=== PATIENT | female | born 1965 | race Caucasian/White ===

== ENCOUNTER → 2016-10-29 | Outpatient (CLI) | payer BC ==
--- NOTE | 2016-10-30 12:48 | MAMMOGRAPHY REPORT ---
BILATERAL DIGITAL SCREENING MAMMOGRAM TOMOSYNTHESIS WITH CAD: 10/29/2016 CLINICAL HISTORY: Routine screening. Patient has no complaints. TECHNIQUE: Breast tomosynthesis in addition to standard 2D mammography was performed. Current study was also evaluated with a Computer Aided Detection (CAD) system. COMPARISON: Comparison is made to exams dated: 10/25/2015 mammogram, 10/21/2014 mammogram, 10/19/2013 m ammogram, 10/13/2012 mammogram, 04/18/2012 mammogram, and 10/17/2011 ultrasound biopsy - [facility]. BREAST COMPOSITION: There are scattered areas of fibroglandular density in both breasts. FINDINGS: There is a stable partially circumscribed mass with associated metallic biopsy marker in t he lower inner quadrant of the left breast. Stable asymmetry in the 12:00 posterior right breast. No new suspicious mass, architectural distortion or cluster of microcalcifications is seen. IMPRESSION: ACR BI-RADS CATEGORY 1: NEGATIVE There is no mammographic evidence of malignancy. A 1 year screening mammogram is recommended. The p atient will receive written notification of the results. Approximately 10% of breast cancers are not detected with mammography. A negative mammographic repor t should not delay biopsy if a clinically suggestive mass is present. Sunshine Jasso M.D. ay/:10/29/2016 21:54:47 Core Cutter: Dolores Torres M, [facility] letter sent: Normal 1/2 BI-RADS Code: ACR BI-RADS Category 1: Negative
== END | disposition home or self-care (01) ==
LOC: C.MAMM 07:58
PROVIDERS: ATTEND Obstetrics & Gynecology
DX: Z12.31 Encounter for screening mammogram for malignant neoplasm of breast (principal)

== ENCOUNTER → 2017-10-31 | Outpatient (CLI) | payer OTHER ==
--- NOTE | 2017-11-01 07:48 | MAMMOGRAPHY REPORT ---
BILATERAL DIGITAL SCREENING MAMMOGRAM TOMOSYNTHESIS WITH CAD: 10/31/2017 CLINICAL HISTORY: Routine screening. TECHNIQUE: Breast tomosynthesis in addition to standard 2D mammography was performed. Current study was also evaluated with a Computer Aided Detection (CAD) system. COMPARISON: Comparison is made to exams dated: 10/29/2016 mammogram, 10/25/2015 mammogram, 10/21/2014 leandra mogram, 10/19/2013 mammogram, 10/13/2012 mammogram, and 10/09/2011 mammogram - [facility]. BREAST COMPOSITION: There are scattered areas of fibroglandular density in both breasts. FINDINGS: No suspicious masses, calcifications, or areas of architectural distortion are noted in ei ther breast. There has been no significant interval change compared to prior exams. A biopsy clip is again noted within the left medial breast. Asymmetry within the right superior posterior breast on the MLO view is stable to less prominent compared to the 2009 exam and is therefore considered benign . IMPRESSION: ACR BI-RADS CATEGORY 2: BENIGN There is no mammographic evidence of malignancy. A 1 year screening mammogram is recommended. The pa tient will receive written notification of the results. Approximately 10% of breast cancers are not detected with mammography. A negative mammographic report should not delay biopsy if a clinically suggestive mass is present. Shani Simpson M.D. /:10/31/2017 14:46:34 Deputy Of Counter Intelligence: Aron DHALIWAL)(Albert), [facility] letter sent: Normal 1/2 BI-RADS Code: ACR BI-RADS Category 2: Benign
== END | disposition home or self-care (01) ==
LOC: C.MAMM 08:10
PROVIDERS: ATTEND Obstetrics & Gynecology
DX: Z12.31 Encounter for screening mammogram for malignant neoplasm of breast (principal)

== ENCOUNTER → 2017-11-08 | Outpatient (CLI) | payer OTHER ==
--- NOTE | 2017-11-08 13:40 | DIAGNOSTIC IMAGING REPORT ---
L HIP UNILATERAL 2 VIEWS CLINICAL HISTORY: 52 years-old Female presenting with L HIP PAIN. TECHNIQUE: Frontal and frog-leg lateral views of the left hip were obtained. COMPARISON: None. FINDINGS: Left hip joint congruent. Severe joint space loss affecting the medial aspect of the joint of the greatest degree but also along the superior aspect. Osteophytosis, subchondral sclerosis, and cystic change affects both the femoral head and acetabulum. No acute fracture or malalignment. No radiographic soft tissue abnormality. IMPRESSION: 1. Advanced degenerative changes of the left hip joint. 2. No acute osseous injury. Electronically signed by: Jj Nieto M.D. 11/08/2017 1:38 PM Dictated Date/Time: 11/08/2017 1:37 PM
== END | disposition home or self-care (01) ==
LOC: C.RAD 13:14
PROVIDERS: ATTEND Internal Medicine
DX: M25.552 Pain in left hip (principal)

== ENCOUNTER 2019-05-15 05:23 | Inpatient (IN) ==
--- NOTE | 2019-04-10 15:47 | PAT Medication Instructions ---
Medication Instructions Date of Service April 10, 2019 Home Medications cetirizine [All Day Allergy (cetirizine)] 10 mg PO DAILY acetaminophen [Acetaminophen Extra Strength] 1,000 mg PO UD PRN diclofenac sodium 75 mg PO BID ASK your surgeon for instructions diclofenac sodium 75 mg PO BID DO NOT take the morning of surgery cetirizine [All Day Allergy (cetirizine)] 10 mg PO DAILY Take morning of surgery With a small sip of water, OTHERWISE NOTHING TO EAT OR DRINK AFTER MIDNIGHT: acetaminophen [Acetaminophen Extra Strength] 1,000 mg PO UD PRN (okay to take up to 4 hours prior to surgery if needed) Other Notes If you have any questions please call us at [phone] or [phone] or [phone] or [phone]
--- NOTE | 2019-04-13 09:41 | Anesthesiology Consultation ---
Date of Service April 13, 2019 Assessment & Plan (1) Encounter for pre-operative examination: - S/P Left PRINCE: 05/19/18: SAB x 1 at L3-L4 at [facility]//Left PRINCE revision: 06/24/18: Grade view 1, Yoder #2, ETT 7.5 at [facility] Chart Review Chart Review: Pending: Refer to Additional Notes / Consult section (pending preop testing (labs, EKG, CXR)) and Patient seen in Pre Admission Testing Teaching & Discussion Pre-Anesthesia Teaching/Discussion Notes: Instructed NPO after midnight before surgery,except medications with 15 cc of water. Medication instructions provided according to the PAT guidelines. History Surgery Operation Date: 05/15/19 07:00 Proposed Procedures p Right Anterior Total Hip Arthroplasty - Monty Cruz DO Height/Weight Height: 5 ft 7 in Weight: 76.7 kg Allergies Allergy/AdvReac Type Severity Reaction Status Date / Time No Known Allergies Allergy Unknown Verified 04/01/19 09:05 Medications Home Medications Medication Instructions Recorded Confirmed Last Taken cetirizine [All Day Allergy 10 mg PO DAILY 06/23/18 04/01/19 06/22/18 (cetirizine)] acetaminophen [Acetaminophen Extra 1,000 mg PO UD PRN 04/01/19 04/01/19 Unknown Strength] diclofenac sodium 75 mg PO BID 04/01/19 04/01/19 Unknown Past Medical History Medical History History of blood transfusion possible post-op Psoriasis Psoriatic arthritis Exercise / Class Metabolic Activity II 4-5 Yardwork/Stairs/Walk up hill Past Family History Family History Sister Family history of reaction to anesthesia Father Family history of diabetes mellitus Grandfather Family hx of colon cancer Past Surgical History Surgical History History of colonoscopy History of hip surgery Left PRINCE revision: 06/24/18: Grade view 1, Yoder #2, ETT 7.5 at [facility] History of hysterectomy PARTIAL History of oophorectomy History of tonsillectomy Hx of ovarian cystectomy X 4 Status post left hip replacement Left PRINCE: 05/19/18: SAB x 1 at L3-L4 at [facility] Past Anesthesia History No Hx of Anesthesia Complications Sister- slow to wake" History of PONV No Hx of PONV and No Hx of Motion Sickness Social History Smoking Status: Current every day smoker tobacco type: e-cigarettes Do You Dip or Chew Tobacco: No Smoking End Date: QUIT CIGARETTES, 4 YRS AGO - DOES VAPE DAILY/ADVISED NPO Hx Alcohol Use: Yes Alcohol type: beer alcohol intake frequency: a few times a week (average case/week) Hx Substance Use: No substance use type: does not use Review of Systems Patient denies chest pain, shortness of breath, dyspnea on exertion, reflux, cough, wheezing, palpitations. Physical Exam Vital Signs VITALS BP 127/84 P 94 TEMP 98.3 SP02 97%RA RESP 16 PHYSICAL Full neck and c-spine range of motion. Full TMJ range of motion. TMD 3.5 finger breaths Mallampati Score 3 Dentition: upper left side tooth missing, crowns "all over" Lungs: clear throughout to auscultation Cardiac: regular rate and rhythm, I/ systolic murmur Spine: normal Carotid arteries: negative bruit Extremities: no edema
[2019-04-13 10:53] LABS: Basophils # (auto) 0.03 K/uL (0-0.2); Basophils % (auto) 0.8 %; Eosinophils # (auto) 0.13 K/uL (0-0.5); Eosinophils % (auto) 3.3 %; Hematocrit (blood only) 40.6 % (37-47); Hemoglobin 13.7 g/dL (12.0-16.0); Immature Granulocytes # (auto) 0.01 K/uL (0.00-0.02); Immature Granulocytes % (auto) 0.3 %; Lymphocytes # (auto) 1.06 K/uL (1.2-3.4); Lymphocytes % (auto) 26.5 %; Mean Corpuscular Hgb Conc 33.7 g/dL (32-36); Mean Corpuscular Volume 94.9 fL (80-100); Mean Platelet Volume 9.5 fL (7.4-10.4); Monocytes # (auto) 0.38 K/uL (0.11-0.59); Monocytes % (auto) 9.5 %; Neutrophils # (auto) 2.39 K/uL (1.4-6.5); Neutrophils % (auto) 59.6 %; Platelet Count 329 K/uL (130-400); RDW Coefficient of Variation 13.7 % (11.5-14.5); RDW Standard Deviation 47.4 fL (36.4-46.3); Red Blood Count 4.28 M/uL (4.2-5.4)
--- NOTE | 2019-04-13 11:01 | XRay Report ---
XR chest Pre-admission PA/Lat CLINICAL HISTORY: 53 years-old Female presenting with preoperative evaluation. TECHNIQUE: PA and lateral views of the chest were obtained. COMPARISON: 04/29/2018. FINDINGS: Atherosclerosis of the aortic arch. Cardiac silhouette normal in size. Lungs are mildly hyperinflated . No focal opacity. No pleural effusion or pneumothorax. Osseous structures normal. Upper abdomen nor mal. IMPRESSION: 1. Mild hyperinflation could be due to inspiratory effort or developing chronic obstructive lung dis ease. No other evidence of acute cardiopulmonary disease. Electronically signed by: Jj Nieto M.D. 04/13/2019 10:59 AM
[2019-04-13 11:12] LABS: BUN Creatinine Ratio 10.8 (10-20); Calcium 8.9 mg/dl (8.5-10.1); Est GFR (African American) 114.9; Est GFR (Non-African American) 99.2; Partial Thromboplastin Ratio 1.1; Partial Thromboplastin Time 28.5 Seconds (21.0-31.0); Potassium 4.8 mmol/L (3.5-5.1)
[2019-04-13 12:31] LABS: Appearance Urine Clear (Clear); Bilirubin Urine Negative (Negative); Blood Urine Negative (Negative); Color Urine Yellow; Glucose Urine UA Negative (Negative); Ketones Urine Negative (Negative); Leukocyte Esterase Urine Negative (Negative); Nitrite Urine Negative (Negative); Protein Urine Negative (Negative); Specific Gravity Urine 1.009 (1.000-1.030); Urobilinogen Urine Negative (Negative)
--- NOTE | 2019-05-14 14:44 | History & Physical Report ---
Date of Service May 14, 2019 Assessment & Plan (1) Osteoarthritis of right hip: We will proceed with a right anterior total hip arthroplasty. Postoperatively she will be started on on aspirin for DVT prophylaxis and kept overnight in the hospital for postoperative medical management. She plans to use energy physical therapy upon discharge. Present on Admission?: Yes History of Present Illness Chief Complaint: Primary osteoarthritis of the right hip Primary Care Provider: Asher Hickman MD Yu is a pleasant 53-year-old female who underwent a left total hip arthroplasty last year. She did well until she fell hard on her left hip. She had a left periprosthetic femur fracture. She underwent a revision total hip arthroplasty for that. She did well. Unfortunately she is now having right hip pain. X-rays and clinical examination have been diagnostic for primary osteoarthritis of the right hip. After failing conservative treatment, she has elected to proceed with a right total hip arthroplasty. Allergies Allergy/AdvReac Type Severity Reaction Status Date / Time No Known Allergies Allergy Unknown Verified 04/01/19 09:05 Home Medications Home Medications Medication Instructions Recorded Confirmed Type cetirizine [All Day Allergy 10 mg PO DAILY 06/23/18 04/01/19 History (cetirizine)] acetaminophen [Acetaminophen Extra 1,000 mg PO UD PRN 04/01/19 04/01/19 History Strength] diclofenac sodium 75 mg PO BID 04/01/19 04/01/19 History Past Med/Surg History Medical History History of blood transfusion possible post-op Psoriasis Psoriatic arthritis Surgical History History of colonoscopy History of hip surgery Left PRINCE revision: 06/24/18: Grade view 1, Yoder #2, ETT 7.5 at [facility] History of hysterectomy PARTIAL History of oophorectomy History of tonsillectomy Hx of ovarian cystectomy X 4 Status post left hip replacement Left PRINCE: 05/19/18: SAB x 1 at L3-L4 at [facility] Family History Sister Family history of reaction to anesthesia Father Family history of diabetes mellitus Grandfather Family hx of colon cancer Social History (Updated 06/23/18 @ 00:30 by Zakiya Saenz) Preferred Language: Belgian Communication Ability: Effective Visual Impairment: Partially Limited Spinning Frame Tender Required: No Beliefs That Will Affect Care: None marital status: Current Living Situation: Alone Current Living Situation Comment: DAUGHTER current occupational status: employed Other Information That Helps Us Care for You: No Feels Safe at Home: Yes Smoking Status: Current every day smoker Tobacco Type: e-cigarettes ; Do You Dip or Chew Tobacco: No ; Smoking End Date: QUIT CIGARETTES, 4 YRS AGO - DOES VAPE DAILY/ADVISED NPO ; Second Hand Exposure: Yes (ON OCC) ; Hx Alcohol Use: Yes Alcohol type: beer Hx Substance Use: No Review of Systems All systems reviewed & are unremarkable except as noted in HPI & below Physical Exam Constitutional: WD/WN, vitals as above Eyes: PERRL, conjunctivae normal, anicteric sclerae ENMT: external ear and nose normal, oropharynx normal Neck: trachea midline, no thyromegaly Respiratory: normal respiratory effort Cardiovascular: RRR, no murmur, no edema Gastrointestinal (Abdomen): normal bowel sounds, soft, nontender, no hepatosplenomegaly Musculoskeletal: Physical examination of the right hip reveals decreased range of motion with flexion, internal and external rotation. There is significant groin pain with forced internal rotation of the hip his leg lengths are essentially equal. Psychiatric: A+Ox3, euthymic affect Results & Data Diagnostic Findings Radiographs of the right hip and pelvis demonstrate advanced osteoarthritis with joint space narrowing osteophyte formation and uvpe-[id number] articulation.
[2019-05-15] MEDS ORDERED: GABAPENTIN 900 MG DOSE PO SCH (06:00)
[2019-05-15] MEDS ORDERED: ACETAMINOPHEN 500 MG TAB PO SCH (06:00)
[2019-05-15] MEDS ORDERED: TRANEXAMIC ACID 1,000 MG **IV Pre-op IV SCH (06:00)
[2019-05-15] MEDS ORDERED: FAMOTIDINE 20 MG TAB PO SCH (06:00)
[2019-05-15] MEDS ORDERED: LR 15ML/HR IV SCH (06:00)
[2019-05-15] MEDS ORDERED: LR 60ML/HR IV SCH (06:00)
[2019-05-15] MEDS ORDERED: ROPIVACAINE 0.5% HCL/PF 150 MG, BUPIVACAINE 0.5% MPF 30 ML, EPINEPHrine 30MG/30ML (OR U... INSTIL SCH (06:00)
[2019-05-15] MEDS ORDERED: BUPIVACAINE 0.5 % 5 MG/1 ML PF 10ML VIAL ONE (06:14)
[2019-05-15] MEDS ORDERED: TRANEXAMIC ACID 1,000 MG **IV Intra-op IV SCH (06:30)
[2019-05-15] MEDS ORDERED: fentaNYL citrate 100 MCG/2 ML VIAL IV PRN (06:31)
[2019-05-15] MEDS ORDERED: ONDANSETRON INJ 2 MG/ML 2 ML VIAL IV PRN ×2 (06:31→10:06)
[2019-05-15] MEDS ORDERED: ePHEDrine sulfate 50 MG/ML AMP IV PRN (06:31)
[2019-05-15] MEDS ORDERED: ATROPINE SULFATE 0.1 MG/ML 10ML SYR IV PRN (06:31)
[2019-05-15] MEDS ORDERED: ORTHO JOINT ANESTHETIC ONE (06:32)
[2019-05-15] MEDS ORDERED: MIDAZOLAM HCL 1 MG/ML 2ML VIAL ONE ×2 (06:40→07:38)
[2019-05-15] MEDS ORDERED: fentaNYL citrate 100 MCG/2 ML VIAL ONE ×2 (06:40→07:19)
--- NOTE | 2019-05-15 06:42 | History & Physical Bridge Note ---
Date of Service May 15, 2019 History & Physical Bridge Note I have examined the patient, reviewed the History & Physical and in the interval since the performance of the History & Physical I have noted the following changes of clinical significance: no changes noted
[2019-05-15] MEDS: CEFAZOLIN 1000MG 1,000 MG/7.5 ML SYR IV SCH ×2 (06:51→10:11)
[2019-05-15] MEDS ORDERED: LIDOCAINE HCL 2% 2 ML VIAL/AMP(20MG/ML) INFIL ONE (07:12)
[2019-05-15] MEDS ORDERED: PHENYLEPHRINE 100MCG/ML 5ML SYR ONE (07:12)
[2019-05-15] MEDS ORDERED: PROPOFOL IV EMULSION 10 MG/ML 20 ML VIAL IV ONE (07:12)
[2019-05-15] MEDS ORDERED: ONDANSETRON INJ 2 MG/ML 2 ML VIAL ONE (07:12)
--- NOTE | 2019-05-15 08:13 | Operative Report ---
PG Post Operative Report Pre & Post Diagnosis Operation Date: 05/15/19 07:00 Pre-Op Diagnosis: Right Hip Degenerative Joint Disease Post-Op Diagnosis: Right Hip Degenerative Joint Disease I identified the patient and participated in the time-out.: Yes Procedure Operation Date: 05/15/19 07:00 Actual Procedures p Right Anterior Total Hip Arthroplasty(Right) - Monty Cruz DO Surgeon Monty Cruz DO Occup Ther Monty Cast PAC Estimated Blood Loss 250 Findings Consistent with Post-Op Diagnosis Specimens Right femoral head Complications none Disposition Disposition: Recovery Room Indications Lakshmi is a pleasant 53-year-old female who presented my office with chronic increasing right hip and groin pain. X-rays and clinical examination have been diagnostic for primary osteoarthritis of the right hip. After failing conservative treatment, she elected to proceed with a right anterior total hip arthroplasty. Description of Procedure Implants used Biomet Taperloc total hip arthroplasty system with a size 11 high offset Taperloc stem, a 52 mm G7 cup with a 25mm screw, an E1 polyethylene liner, a 36 mm ceramic head with a +0 neck. Patient arrived at the hospital for the above procedure. They were seen in the preoperative holding area and the operative extremity was identified and signed. They were given a spinal anesthetic. They were given a preoperative antibiotic and TXA. They were taken back To the operating room and laid on the table in the supine position. The leg was brought out through a Puristst leg positioner. The hip was then prepped and draped in sterile fashion. A timeout was done and the patient and the operative extremity was properly identified. An anterior approach was used. Dissection was taken down through the fascia and the tensor muscle belly was retracted laterally and the rectus was retracted medially. The circumflex vessels were identified and ligated. The capsule was then incised and tagged for later repair. The femoral neck was then cut and the femoral head was removed. The acetabulum was exposed. Time was spent doing a complete circumferential labral release. Sequential reaming of the acetabulum up to a size 51 reamer was done. Final reamings were done under fluoroscopy to ensure appropriate version. A Biomet 52 mm G7 cup was then impacted into place. A single 25 mm screw was placed. The E1 polyethylene liner was then snapped into place. Surrounding soft tissues were then injected with 100 cc of an orthopedic pain control cocktail. The proximal femur was then exposed. Sequential broaching up to a size 11 broach was done. Off that broach a size 36 head with a +0 neck was trialed. The hip was reduced and fluoroscopic images showed anatomic alignment of the implants in acceptable length. The broach was removed. The final size 11 high offset Taperloc stem was then impacted into place. A ceramic 36 mm head with a +0 neck was then impacted into place in the hip was reduced. Final fluoroscopic images showed anatomic reduction of the hip. The capsule was then closed with #1 Vicryl suture. A dilute betadyne lavage was then done for 3 minutes. The joint was then irrigated with normal saline solution. The fascia was closed with #1 PDS suture. Skin was closed with 2-0 Vicryl, jen, and a Jyotsna VAC dressing. The patient was then transferred to a hospital bed and taken to the post anesthesia care unit in stable condition. They tolerated the procedure well. I attest to the content of the Intraoperative Record and any orders documented therein. Any exceptions are noted below.
--- NOTE | 2019-05-15 08:50 | Fluoroscopy Report ---
FL hip RT 1V CLINICAL HISTORY: RT ANTERIOR HIP COMPARISON STUDY: Pelvis 04/13/2019. FLUOROSCOPY TIME: 37 seconds.. FINDINGS: A single fluoroscopic spot image of the right hip demonstrates a right total hip arthroplas ty. The hardware is intact. No fracture or dislocation. IMPRESSION: Fluoroscopy provided for right total hip arthroplasty. Electronically signed by: Jorge Nielsen M.D. 05/15/2019 8:49 AM
--- NOTE | 2019-05-15 09:05 | XRay Report ---
XR hip 1V RT w pelvis CLINICAL HISTORY: IN PACU - A/P PELVIS and LATERAL HIP COMPARISON: 06/23/2018 DISCUSSION: Total right hip arthroplasty in good position. Could contact between prosthetic and under lying bone. Expected postoperative soft tissue change. Pre-existing total left hip arthroplasty. IMPRESSION: Anatomic alignment posttotal right hip arthroplasty. The above report was generated using voice recognition software. It may contain grammatical, syntax or spelling errors. Electronically signed by: Param Urbina M.D. 05/15/2019 9:04 AM
--- NOTE | 2019-05-15 09:34 | Anesthesiology Progress Note ---
Date of Service May 15, 2019 Anesthesia Post Procedure Vital Signs Vital Signs: Temp Pulse Pulse Resp BP BP Pulse Ox 05/15/19 09:30 98.4 F 72 13 93/63 L 92 05/15/19 09:20 72 14 95/66 L 92 05/15/19 09:10 62 16 97/63 L 93 05/15/19 09:00 68 18 100/69 97 05/15/19 08:50 77 17 92/66 L 94 05/15/19 08:40 98.4 F 78 16 106/71 95 05/15/19 05:57 98.1 F 71 20 155/92 H 95 Pain Intensity Right Hip: Pain Intensity: 2 Transfer of Care Handoff Completed per policy Notes Mental Status: alert / awake / arousable and participated in evaluation Patient Amnestic to Procedure: Yes Nausea / Vomiting: adequately controlled Pain: adequately controlled Airway Patency, RR, SpO2: stable & adequate BP & HR: stable & adequate Hydration State: stable & adequate Neuraxial Anesthesia: was administered and sensory block is resolving Anesthetic Complications: no major complications apparent and Pt Satisfied with anesthetic care
[2019-05-15] MEDS ORDERED: SODIUM CHLORIDE 0.9% 1000ML 1,000 ML IV SCH (10:06)
[2019-05-15] MEDS ORDERED: METOCLOPRAMIDE HCL INJ 5 MG/ML 2 ML VIAL IV PRN (10:06)
[2019-05-15] MEDS ORDERED: TRAMADOL HCL 50 MG TABLET PO PRN (10:06)
[2019-05-15] MEDS ORDERED: BISACODYL 10 MG SUPP PR PRN (10:06)
[2019-05-15] MEDS ORDERED: HYDROmorphone INJ 0.5 MG/0.5 ML SYR IV PRN (10:06)
[2019-05-15] MEDS ORDERED: MAGNESIUM HYDROXIDE SUSP 30 ML UDC PO PRN (10:06)
[2019-05-15] MEDS ORDERED: NALOXONE HCL 0.4 MG/1 ML VIAL/CARP IV PRN (10:06)
[2019-05-15] MEDS: CETIRIZINE HCL 10 MG TABLET PO SCH (12:12)
[2019-05-15] MEDS: MULTIVITAMIN TAB PO SCH (12:12)
[2019-05-15] MEDS: ASPIRIN 81 MG ECTAB PO SCH ×2 (12:12→21:07)
[2019-05-15] MEDS: KETOROLAC 30 MG/ML VIAL IV SCH ×3 (12:13→22:46)
[2019-05-15] MEDS: DOCUSATE SODIUM 100 MG CAP PO SCH ×2 (12:15→21:07)
[2019-05-15] MEDS ORDERED: INFLUENZA ADMINISTRATION CHARGE ONE (12:45)
[2019-05-15] MEDS ORDERED: INFLUENZA VIRUS QUAD VACCINE 0.5 ML SYR IM ONE (12:45)
[2019-05-15] MEDS: ACETAMINOPHEN 500 MG TAB PO SCH ×2 (14:00→21:07)
[2019-05-15] MEDS: CEFAZOLIN 2000MG 2,000 MG/15 ML SYR IV SCH (18:39)
[2019-05-15] MEDS ORDERED: SENNA 8.6 MG TAB PO SCH (21:00)
[2019-05-16] MEDS: CEFAZOLIN 2000MG 2,000 MG/15 ML SYR IV SCH (01:43)
[2019-05-16] MEDS: ACETAMINOPHEN 500 MG TAB PO SCH (05:27)
[2019-05-16] MEDS: KETOROLAC 30 MG/ML VIAL IV SCH (05:28)
[2019-05-16 05:54] LABS: Basophils # (auto) 0.02 K/uL (0-0.2); Basophils % (auto) 0.3 %; Eosinophils # (auto) 0.05 K/uL (0-0.5); Eosinophils % (auto) 0.7 %; Hematocrit (blood only) 30.9 % (37-47); Hemoglobin 10.5 g/dL (12.0-16.0); Immature Granulocytes # (auto) 0.01 K/uL (0.00-0.02); Immature Granulocytes % (auto) 0.1 %; Lymphocytes # (auto) 1.25 K/uL (1.2-3.4); Lymphocytes % (auto) 18.7 %; Mean Corpuscular Hemoglobin 32.2 pg (25-34); Mean Corpuscular Volume 94.8 fL (80-100); Mean Platelet Volume 8.9 fL (7.4-10.4); Monocytes # (auto) 0.63 K/uL (0.11-0.59); Monocytes % (auto) 9.4 %; Neutrophils # (auto) 4.71 K/uL (1.4-6.5); Neutrophils % (auto) 70.8 %; Platelet Count 256 K/uL (130-400); RDW Coefficient of Variation 13.6 % (11.5-14.5); RDW Standard Deviation 46.9 fL (36.4-46.3); Red Blood Count 3.26 M/uL (4.2-5.4); White Blood Count 6.67 K/uL (4.8-10.8)
[2019-05-16 06:20] LABS: BUN Creatinine Ratio 11.9 (10-20); Calcium 8.4 mg/dl (8.5-10.1); Creatinine Clr Calc Pharmacy 115.4 ml/min; Est GFR (African American) 120.4; Est GFR (Non-African American) 103.9; Potassium 3.8 mmol/L (3.5-5.1)
[2019-05-16] MEDS: DOCUSATE SODIUM 100 MG CAP PO SCH (08:24)
[2019-05-16] MEDS: MULTIVITAMIN TAB PO SCH (08:25)
[2019-05-16] MEDS: CETIRIZINE HCL 10 MG TABLET PO SCH (08:25)
[2019-05-16] MEDS: ASPIRIN 81 MG ECTAB PO SCH (08:25)
--- NOTE | 2019-05-16 08:36 | Orthopedic Progress Note ---
Date of Service May 16, 2019 Assessment & Plan (1) History of total right hip arthroplasty: Overall she is doing very well. She is not having much pain in the right hip. She has already been up and ambulating the hallways. She is on aspirin for DVT prophylaxis. She will be seen by physical therapy this morning for ambulation and range of motion exercises. She can be discharged to home later today. She will follow-up in the office in 2 weeks. Present on Admission?: Yes Subjective Lakshmi was seen and examined at bedside this morning. Overall she is doing very well. She is not having much pain in the right hip. She has already been ambulating out into the hallways. She has no complaints. Physical Exam Musculoskeletal: On physical examination of the right hip, the Jyotsna VAC dressings to suction. Her leg lengths are close to equal. She has active dorsiflexion and plantarflexion of her right ankle. Sensation is intact throughout. Results & Data Vital Signs (Past 12 Hours) Vital Signs Temp Pulse Resp BP Pulse Ox 05/16/19 07:32 36.7 C 70 16 107/74 97 05/16/19 03:17 36.8 C 68 16 103/71 96 05/15/19 22:51 36.6 C 67 16 90/56 L 95 Laboratory Results H & H 04/13/19 05/16/19 Range/Units 10:13 05:08 Hgb 13.7 10.5 L (12.0-16.0) g/dL Hct 40.6 30.9 L (37-47) % Coagulation 04/13/19 Range/Units 10:13 INR 1.0 (0.9-1.1) Diagnostic Findings Postoperative x-rays of the right hip show the prosthesis to be in anatomic alignment without any evidence of fracture, dislocation, or loosening. PG Care Time/CCT Total # of Minutes Spent Total Time Spent with Patient: Total time spent is greater than 50% in coordination of care (as documented) at patient's floor/unit and/or counseling patient:
--- NOTE | 2019-05-16 08:38 | Discharge Summary ---
Date of Service May 16, 2019 Admission HPI Per Admitting Provider Yu is a pleasant 53-year-old female who underwent a left total hip arthroplasty last year. She did well until she fell hard on her left hip. She had a left periprosthetic femur fracture. She underwent a revision total hip arthroplasty for that. She did well. Unfortunately she is now having right hip pain. X-rays and clinical examination have been diagnostic for primary osteoarthritis of the right hip. After failing conservative treatment, she has elected to proceed with a right total hip arthroplasty. Principal Diagnosis Right total hip arthroplasty Discharge Data Allergies Allergy/AdvReac Type Severity Reaction Status Date / Time No Known Allergies Allergy Unknown Verified 05/15/19 05:54 Consultations 05/16/19 08:00 Consult Case Management - Discharge Planning Routine Procedures Performed Operation Date: 05/15/19 07:00 Actual Procedures p Right Anterior Total Hip Arthroplasty(Right) - Monty Cruz DO Ordered Studies 05/15/19 07:00 FL fluoroscopy <1hr Routine FL hip RT 1V Routine Hospital Course (1) History of total right hip arthroplasty: On May 15, 2019 Lakshmi arrived at [facility] system and underwent a right anterior total hip arthroplasty without complication. She had a spinal anesthetic. Postoperatively she was started on aspirin for DVT prophylaxis and discharged to general orthopedic floors. Her hospital course is uneventful. On postop day #1 her H&H was stable and her pain was well controlled. She was able to participate well with physical therapy. She was then discharged to home with oral pain medications. She will follow-up with orthopedics in 2 weeks. Total Time Total Time Spent Total Time Spent (In Minutes): 20 Discharge Plan Discharge Items Patient Disposition: Home - Home Health Services Reason For Visit: Right Hip Degenerative Joint Disease Discharge Diagnosis: Right total hip arthroplasty Activity: As commented below Non-emergency contact: Surgeon Call non-emergency contact if: your wound has increased redness and your wound has increased drainage Follow-up/Referrals: Asher Hickman MD [Primary Care Provider] - Diet: Regular Addtl Attending Provider Instructions: Activity and Therapy Recommendations: * If you are using [facility] then therapy will be provided at your home until they feel you have accomplished all of your goals. * If you are using [facility] then Physical Therapy will be provided until they feel you are ready to start Outpatient Physical Therapy. * If you are not using home therapy then Outpatient Physical Therapy should start about 3-5 days from your day of surgery. Therapy will last about 6-10 weeks * You were shown a series of exercises in the hospital. Do these exercises three times each day including the exercises you were shown in physical therapy. * Get up and walk several times each day.~ For the first four weeks, try not to stand or walk for more than one hour at a time. If you do stand or walk for more than one hour, you will not hurt anything, but your leg will likely swell.~~ * As you feel comfortable, you may change from the walker or crutches to a cane and~then to independent walking. Medications: * Narcotic You will likely be sent home from the hospital with a prescription for the narcotic pain medication that worked best throughout your stay. * Aspirin Most patients will be required to take Aspirin 81mg twice a day for 6 weeks after surgery. This is obtained [id number] and a prescription is not necessary. * Other medications may be prescribed for specific circumstances. If you have any questions, please call the office at . * Resume previous home medications unless otherwise instructed TEDs/Elastic Stockings: The white elastic stockings help limit swelling and prevent blood clots from forming in your legs. The more you wear them, the more they work. Wear them for six weeks. Dressing Care: You will likely have a purple VAC dressing after surgery. This dressing will keep the incision dry and promote early healing. After about 7 days the batteries will wear out and the VAC will lose suction. Simply remove the dressing at that time and throw everything away, including the small suction machine. Then, you may leave the jen open to air or cover them with a dry dressing so they do not rub on your pants. The jen will be removed at your 2 week follow-up appointment. Showering: You may shower immediately with the purple VAC dressing. Let the shower spray hit your opposite side and slowly pat the plastic dry. Do not soak the dressing. After the dressing is removed you may shower normally with the jen exposed. Let soapy water run over the jen and pat them dry. Things To Watch For: * Drainage from the incision site that occurs more than one week after your surgery. * Increased redness at the incision site. * Fever above 102 degrees Fahrenheit. * Unusual chest pain or shortness of breath. * Call [facility] at with any of the above problems Follow-Up Visit: Follow-up with Dr. Cruz 2-3 weeks after your day of surgery. An appointment was probably scheduled when you signed-up for surgery in the office. If you have any questions call Office Instructions: More detailed instructions as well as Frequently Asked Questions were provided in a folder by our office when you signed-up for surgery. Please review these instructions when you get home. If you have any further questions or concerns, please feel free to call the office at [phone] Pending Studies at Discharge: No Stand-Alone Forms: [facility] [employer], Smoking Cessation Medications and DC Order Prescriptions: New tramadol 50 mg Tablet 50 mg PO Q4H PRN (Reason: pain) Qty: 30 RF: 0 aspirin [Ecotrin Low Strength] 81 mg Tablet,Delayed Release (Dr/Ec) 81 mg PO BID Qty: 84 RF: 0 Continued cetirizine [All Day Allergy (cetirizine)] 10 mg Tablet 10 mg PO DAILY RF: 0 acetaminophen [Acetaminophen Extra Strength] 500 mg Tablet 1,000 mg PO UD PRN (Reason: Pain) RF: 0 diclofenac sodium 75 mg Tablet,Delayed Release (Dr/Ec) 75 mg PO BID RF: 0 Discharge Orders: Discharge Order (Routine); Ordered 05/16/19 Ordered By: Monty Cruz Admission Data Admit Date/Time: 05/15/19 08:43 Attending Provider: Monty Cruz Admit Provider: Monty Cruz Primary Care Provider: Asher Hickman
== END 2019-05-16 10:26 | disposition home health service (06) | DRG 470 ==
LOC: ASU 05:23 → 3E 08:43